=== PATIENT | male | born 1990 | race Caucasian/White ===

== ENCOUNTER 2020-03-06 03:55 | Emergency (ER) | payer MEDICAID ==
[~2020-03-06] VITALS: Ht 167.6 cm; Wt 68.0 kg
--- OUTSIDE RECORDS SUMMARY | 2020-03-06 09:58 | XMS ---
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 CARE TEAM PHONE: Unknown Franco has no Care Guidelines for this patient. E.D. VISIT COUNT (12 MO.) 1 [facility] TOTAL 4 NOTE: Visits indicate total known visits. ED/UCC VISIT TRACKING (12 MO.) 03/06/2020 03:56 [facility] TYPE: Emergency COMPLAINT: - PANIC ATTACK 01/15/2020 22:43 [facility] TYPE: Emergency DIAGNOSES: 02887. [facility] 18383. Elevated white blood cell count, unspecified 21095. Lumbago with sciatica, right side 76820. Lumbago with sciatica, left side [facility]2020 17[facility] DIAGNOSES: 96281. BRONSON x3 DAYS 04403. Other psychoactive substance abuse, uncomplicated 91775. Low back pain 38911. Other headache syndrome 04/01/2019 12:54 [facility] TYPE: Emergency DIAGNOSES: - Laceration without foreign body of left index finger without - Laceration without foreign body of left middle finger without - Laceration without foreign body of other finger without damag - WORK INJURY INPATIENT VISIT TRACKING (12 MO.) No inpatient visits to display in this time frame [email or web address]
--- NOTE | 2020-03-07 17:23 | EKG ---
[facility] [address] [facility] [place], [place] [address] Signed Sinus tachycardia Incomplete right bundle branch block Borderline ECG No previous ECGs available Confirmed by KATHY GRANT DO ([id number]) on 03/07/2020 5:22:54 PM Electronically Signed By: KATHY GRANT DO 03/07/20 1723 PATIENT NAME: KATHY SAMUEL Electrocardiogram DATE OF : 88 PHYSICIAN: KATHY GRANT DO REPORT #: [id number] REPORT IS CONFIDENTIAL AND NOT TO BE RELEASED WITHOUT AUTHORIZATION
== END 2020-03-06 09:57 | disposition home or self-care (01) ==
LOC: ED 03:55
DX: F15.10 Other stimulant abuse, uncomplicated (principal); F11.10 Opioid abuse, uncomplicated
CPT/HCPCS: 80053; 80176; 81001; 83690; 84484; 85025; 93005; 93010; 96361; 96374; 96375; 96376; 99285-25; G0480; J2060; J2310; J7030

== ENCOUNTER 2020-08-13 19:37 | Emergency (ER) | payer OTHER ==
[~2020-08-13] VITALS: Ht 167.6 cm; Wt 68.0 kg
[2020-08-13] MEDS ORDERED: NAPROXEN500 MG PO (21:14)
--- NOTE | 2020-08-15 13:34 | EKG ---
[facility] [address] [facility] [place] [address] Signed Sinus tachycardia Otherwise normal ECG When compared with ECG of 06-MAR-2020 04:12, Incomplete right bundle branch block is no longer present Confirmed by LEAH BAILEY MD ([id number]) on 08/15/2020 1:34:06 PM Electronically Signed By: LEAH BAILEY MD 08/15/20 1334 PATIENT NAME: KATHY SAMUEL Electrocardiogram DATE OF : 88 PHYSICIAN: LEAH BAILEY MD REPORT #: [id number] REPORT IS CONFIDENTIAL AND NOT TO BE RELEASED WITHOUT AUTHORIZATION
== END 2020-08-13 21:55 | disposition home or self-care (01) ==
LOC: ED 19:37
DX: T40.411A Poisoning by fentanyl or fentanyl analogs, accidental (unintentional), initial encounter (principal); S16.1XXA Strain of muscle, fascia and tendon at neck level, initial encounter; X58.XXXA Exposure to other specified factors, initial encounter
CPT/HCPCS: 70450; 72125; 93005; 93010; 99284-25; J7030